=== PATIENT | female | born 1955 | race African-American/Black ===

== ENCOUNTER 2017-09-20 20:23 | Inpatient (IN) | payer OTHER ==
[~2017-09-20] VITALS: Ht 152.4 cm; Wt 124.7 kg
[2017-09-20 20:35] VITALS: BP 129/88
[2017-09-20] MEDS ORDERED: Nitroglycerin Subl 0.4mg tab SL PRN (20:45)
[2017-09-20] MEDS ORDERED: Aspirin Baby 81mg ORAL ONE (20:45)
[2017-09-20 21:40] LABS: ANION GAP 2 mmol/L (5-15); BLOOD UREA NITROGEN 20 mg/dL (7-18); CALCIUM 8.5 MG/DL (8.5-10.1); CARBON DIOXIDE 37 MMOL/L (21-32); CHLORIDE 108 MMOL/L (98-107); POTASSIUM 4.2 MMOL/L (3.5-5.1); SODIUM 147 MMOL/L (136-145)
[2017-09-20 21:55] LABS: ALANINE AMINOTRANSFERASE 30 U/L (12-78); ALBUMIN 2.7 G/DL (3.4-5.0); ALBUMIN/GLOBULIN RATIO 0.8 (1.0-2.7); ALKALINE PHOSPHATASE 84 U/L (46-116); ASPARTATE AMINO TRANSFERASE 13 U/L (15-37); BILIRUBIN,TOTAL 0.6 MG/DL (0.2-1.0); CKMB 3.2 NG/ML (0.0-3.6); CREATINE KINASE 120 U/L (26-308)
--- NOTE | 2017-09-20 22:18 | Emergency Room Report ---
History of Present Illness General Chief Complaint: Dyspnea/Respdistress Source: Patient Present Illness HPI Patient 62-year-old female brought in by EMS after increased difficulty breathing. Patient prior history of congestive heart failure. Patient was noted to have marked had difficulty breathing over the past few hours gradual onset. Patient was noted to have been given nitroglycerin 3 in the field. She started on supplemental oxygen by EMS. Patient was noted to have severe difficulty breathing worse with supine position. She denies productive cough. Patient reports having prior history of asthma as well. Allergies: Coded Allergies: No Known Allergies (Unverified , 09/20/17) Patient History Past Medical History: see triage record Last Menstrual Period: N/a Reviewed Nursing Documentation: PMH: Agreed; PSxH: Agreed Nursing Documentation-PMH Past Medical History: No History, Except For Hx Cardiac Problems: Yes - CHF Hx Asthma: Yes Hx Diabetes: No Review of Systems All Other Systems: negative except mentioned in HPI Physical Exam Vital Signs Date Time Temp Pulse Resp B/P (MAP) Pulse Ox O2 Delivery O2 Flow Rate FiO2 09/20/17 20:17 98.5 103 16 129/88 93 Room Air 98.4 09/20/17 20:35 15.0 09/20/17 20:58 50 General Appearance: moderate distress, obese, Chronically Ill ENT: hearing grossly normal Neck: full range of motion Respiratory: respiratory distress, rales Cardiovascular #1: normal peripheral pulses, edema Gastrointestinal: non tender, soft Musculoskeletal: normal inspection, back normal, digits/nails normal Neurologic: normal inspection, alert, oriented x3, responsive Medical Decision Making Diagnostic Impression: Primary Impression: Acute exacerbation of CHF (congestive heart failure) Additional Impression: Pulmonary edema ER Course Patient presented for shortness of breath. Differential included but was not limited to anemia, pneumonia, pneumothorax, myocardial infarction, pericardial effusion, congestive heart failure, acidosis. Because of complexity of patient' s case laboratory testing and imaging studies were ordered. The patient was given aspirin. EKG interpreted by me showed sinus tachycardia with a rate of [address] or T wave changes. The patient was given nitroglycerin and started on BiPAP.The patient was endorsed to Dr. Warner pending lab testing Labs Test 09/20/17 21:00 Sodium Level 147 MMOL/L (136-145) Potassium Level 4.2 MMOL/L (3.5-5.1) Chloride Level 108 MMOL/L (98-107) Carbon Dioxide Level 37 MMOL/L (21-32) Anion Gap 2 mmol/L (5-15) Blood Urea Nitrogen 20 mg/dL (7-18) Creatinine 1.0 MG/DL (0.55-1.30) Estimat Glomerular Filtration Rate 56.2 mL/min (>60) Glucose Level 72 MG/DL (74-106) Calcium Level 8.5 MG/DL (8.5-10.1) Total Bilirubin 0.6 MG/DL (0.2-1.0) Aspartate Amino Transf (AST/SGOT) 13 U/L (15-37) Alanine Aminotransferase (ALT/SGPT) 30 U/L (12-78) Alkaline Phosphatase 84 U/L (46-116) Total Creatine Kinase 120 U/L (26-308) Creatine Kinase MB 3.2 NG/ML (0.0-3.6) Creatine Kinase MB Relative Index 2.6 Troponin I 0.023 ng/mL (0.000-0.056) Pro-B-Type Natriuretic Peptide 55488 pg/mL (0-125) Total Protein 6.3 G/DL (6.4-8.2) Albumin 2.7 G/DL (3.4-5.0) Globulin 3.6 g/dL Albumin/Globulin Ratio 0.8 (1.0-2.7) EKG Diagnostic Results Rate: normal Rhythm: NSR ST Segments: no acute changes Last Vital Signs Date Time Temp Pulse Resp B/P (MAP) Pulse Ox O2 Delivery O2 Flow Rate FiO2 09/20/17 20:58 98 19 100 Facial 50 09/20/17 20:35 15.0 09/20/17 20:35 98.4 129/88 98.4 Status: improved Disposition: ADMITTED INPATIENT Condition: Serious Referrals: NON PHYSICIAN (PCP) Aleksander Gaston Sep 20, 2017 22:18
[2017-09-20 22:24] VITALS: BP 101/81
[2017-09-20] MEDS ORDERED: ALLOPURINOL300 M1 ORAL (22:36)
[2017-09-20] MEDS ORDERED: LORATADINE10 M3 PO (22:36)
[2017-09-20] MEDS ORDERED: FUROSEMIDE40 MG ORAL (22:36)
[2017-09-20] MEDS ORDERED: OMEPRAZOLE20 M2 ORAL (22:36)
[2017-09-20] MEDS ORDERED: ASPIRIN EC81 MG ORAL (22:36)
[2017-09-20] MEDS ORDERED: Albuterol/Ipratropium 3ml neb HHN PRN (23:15)
--- NOTE | 2017-09-20 23:16 | History and Physical ---
History of Present Illness General Date patient seen: Sep 20, 2017 Reason for Hospitalization: Dyspnea/Respdistress Present Illness HPI 62-year-old female with hx of DM, CHF, morbic obesity brought in by EMS with CC of increased difficulty breathing. Patient was noted to have marked difficulty breathing over the past few hours. Patient was given nitroglycerin 3 in the field by paramedics. She started on supplemental oxygen as well. Patient was noted to have severe difficulty breathing worse with supine position. She denies productive cough. Patient reports having prior history of asthma as well. She received diuretics in [place] and was put on BIPAP and transferred to [facility] Allergies: Coded Allergies: No Known Allergies (Unverified , 09/20/17) Medication History Scheduled Allopurinol* (Allopurinol*), 300 MG ORAL DAILY, (Reported) Aspirin Ec* (Aspirin Ec*), 81 MG ORAL DAILY, (Reported) Furosemide* (Lasix*), 40 MG ORAL DAILY, (Reported) Loratadine (Loratadine), 10 MG PO DAILY, (Reported) Omeprazole (Omeprazole), 20 MG ORAL DAILY, (Reported) Patient History Healthcare decision maker Resuscitation status Advanced Directive on File Past Medical/Surgical History Past Medical/Surgical History: (1) Diabetes mellitus (2) CHF (congestive heart failure) Review of Systems Constitutional: Reports: no symptoms All Other Systems: negative except mentioned in HPI Physical Exam General Appearance: WD/WN Lines, tubes and drains: peripheral HEENT: normocephalic, atraumatic Neck: non-tender, normal alignment Respiratory/Chest: chest wall non-tender, rhonchi - left, rhonchi - right Cardiovascular/Chest: normal peripheral pulses, normal rate, regular rhythm Last 24 Hour Vital Signs Date Time Temp Pulse Resp B/P (MAP) Pulse Ox O2 Delivery O2 Flow Rate FiO2 09/20/17 22:24 98.6 14 19 101/81 100 15.0 50 98.6 09/20/17 21:00 15.0 50 09/20/17 20:58 98 19 100 Facial 50 09/20/17 20:35 103 27 Non-Rebreather 15.0 09/20/17 20:35 98.4 103 16 129/88 93 Non-Rebreather 15.0 98.4 09/20/17 20:17 98.5 103 16 129/88 93 Room Air 98.4 Laboratory Tests Test 09/20/17 21:00 Sodium Level 147 MMOL/L (136-145) H Potassium Level 4.2 MMOL/L (3.5-5.1) Chloride Level 108 MMOL/L (98-107) H Carbon Dioxide Level 37 MMOL/L (21-32) H Anion Gap 2 mmol/L (5-15) L Blood Urea Nitrogen 20 mg/dL (7-18) H Creatinine 1.0 MG/DL (0.55-1.30) Estimat Glomerular Filtration Rate 56.2 mL/min (>60) Glucose Level 72 MG/DL (74-106) L Calcium Level 8.5 MG/DL (8.5-10.1) Total Bilirubin 0.6 MG/DL (0.2-1.0) Aspartate Amino Transf (AST/SGOT) 13 U/L (15-37) L Alanine Aminotransferase (ALT/SGPT) 30 U/L (12-78) Alkaline Phosphatase 84 U/L (46-116) Total Creatine Kinase 120 U/L (26-308) Creatine Kinase MB 3.2 NG/ML (0.0-3.6) Creatine Kinase MB Relative Index 2.6 Troponin I 0.023 ng/mL (0.000-0.056) Pro-B-Type Natriuretic Peptide 32786 pg/mL (0-125) H Total Protein 6.3 G/DL (6.4-8.2) L Albumin 2.7 G/DL (3.4-5.0) L Globulin 3.6 g/dL Albumin/Globulin Ratio 0.8 (1.0-2.7) L Digoxin Level Pending Height (Feet): 5 Weight (Pounds): 260 Medications Current Medications Medications (Trade) Dose Ordered Sig/Sylvester Route PRN Reason Start Time Stop Time Status Last Admin Dose Admin Acetaminophen (Tylenol) 650 mg ONCE ONCE ORAL 09/20/17 23:15 09/20/17 23:16 Acetaminophen (Tylenol) 650 mg Q4H PRN ORAL Fever 09/20/17 23:15 10/20/17 23:14 UNV Albuterol/ Ipratropium (Albuterol/ Ipratropium) 3 ml EVERY 4 HOURS PRN HHN Shortness of Breath 09/20/17 23:15 09/25/17 23:14 Allopurinol (Allopurinol) 300 mg DAILY ORAL 09/21/17 09:00 10/21/17 08:59 Dextrose (Dextrose 50%) STAT PRN IV Hypoglycemia 09/20/17 23:15 10/20/17 23:14 UNV Furosemide (Lasix) 40 mg EVERY 8 HOURS STAT IV 09/20/17 23:07 09/20/17 23:08 UNV Heparin Sodium (Porcine) (Heparin 5000 units/ml) 5,000 units EVERY 12 HOURS SUBQ 09/21/17 09:00 10/21/17 08:59 UNV Nitroglycerin (Ntg) 0.4 mg Q5M PRN SL Prn Chest Pain 09/20/17 20:45 10/20/17 20:44 Ondansetron HCl (Zofran) 4 mg Q6H PRN IVP Nausea & Vomiting 09/20/17 23:15 10/20/17 23:14 Ondansetron HCl (Zofran) 4 mg Q6H PRN IVP Nausea & Vomiting 09/20/17 23:15 10/20/17 23:14 UNV Polyethylene Glycol (Miralax) 17 gm DAILYPRN PRN ORAL Constipation 09/20/17 23:15 10/20/17 23:14 UNV Temazepam (Restoril) 15 mg HSPRN PRN ORAL Insomnia 09/20/17 23:15 09/27/17 23:14 UNV Assessment/Plan Problem List: (1) Acute respiratory failure ICD Codes: J96.00 - Acute respiratory failure, unspecified whether with hypoxia or hypercapnia SNOMED: 21573795 (2) Acute exacerbation of CHF (congestive heart failure) ICD Codes: I50.9 - Heart failure, unspecified SNOMED: 99452290 (3) Diabetes mellitus ICD Codes: E11.9 - Type 2 diabetes mellitus without complications SNOMED: 55172037 (4) Pulmonary edema ICD Codes: J81.1 - Chronic pulmonary edema SNOMED: 59996401 Assessment/Plan diuretics echo cardio to see sliding scale diabetic diet. Meme Keller MD Sep 20, 2017 23:16
[2017-09-21] VITALS (7 sets, daily range): BP systolic 112–159; BP diastolic 70–100
[2017-09-21 00:18] LABS: BASOPHILS % (AUTO) 0.9 % (0.0-2.0); EOSINOPHILS % (AUTO) 1.6 % (0.0-3.0); HEMATOCRIT 45.4 % (37.0-47.0); HEMOGLOBIN 14.9 G/DL (12.0-16.0); LYMPHOCYTES % (AUTO) 19.3 % (20.0-45.0); MEAN CORPUSCULAR VOLUME 92 FL (80-99); MONOCYTES % (AUTO) 11.5 % (1.0-10.0); NEUTROPHILS % (AUTO) 66.8 % (45.0-75.0); PLATELET COUNT 217 K/UL (150-450); RED BLOOD COUNT 4.95 M/UL (4.20-5.40); RED CELL DISTRIBUTION WIDTH 15.8 % (11.6-14.8); WHITE BLOOD COUNT 6.8 K/UL (4.8-10.8)
--- NOTE | 2017-09-21 02:49 | Emergency Room Report ---
History of Present Illness General Chief Complaint: Dyspnea/Respdistress Source: Patient Present Illness Allergies: Coded Allergies: No Known Allergies (Unverified , 09/20/17) Patient History Last Menstrual Period: N/a Nursing Documentation-[facility] Past Medical History: No History, Except For Hx Cardiac Problems: No Hx Asthma: Yes Hx Diabetes: Yes Hx Cancer: No Hx Gastrointestinal Problems: No Hx Neurological Problems: No Physical Exam Vital Signs Date Time Temp Pulse Resp B/P (MAP) Pulse Ox O2 Delivery O2 Flow Rate FiO2 09/20/17 20:17 98.5 103 16 129/88 93 Room Air 98.4 09/20/17 20:35 15.0 09/20/17 20:58 50 Medical Decision Making Diagnostic Impression: Primary Impression: Acute exacerbation of CHF (congestive heart failure) Additional Impression: Pulmonary edema ER Course Please refer to the initial note for the history exam and presentation Patient is a fairly complex patient with multiple differential to consideration including but not limited to cardiac cardiopulmonary and vascular emergencies Patient's imaging reveals cardiomegaly with some congestion Patient has done well on BiPAP Blood work is noted below And patient requiring admission to higher level of care Labs Test 09/20/17 21:00 09/21/17 00:04 Sodium Level 147 MMOL/L (136-145) Potassium Level 4.2 MMOL/L (3.5-5.1) Chloride Level 108 MMOL/L (98-107) Carbon Dioxide Level 37 MMOL/L (21-32) Anion Gap 2 mmol/L (5-15) Blood Urea Nitrogen 20 mg/dL (7-18) Creatinine 1.0 MG/DL (0.55-1.30) Estimat Glomerular Filtration Rate 56.2 mL/min (>60) Glucose Level 72 MG/DL (74-106) Calcium Level 8.5 MG/DL (8.5-10.1) Total Bilirubin 0.6 MG/DL (0.2-1.0) Aspartate Amino Transf (AST/SGOT) 13 U/L (15-37) Alanine Aminotransferase (ALT/SGPT) 30 U/L (12-78) Alkaline Phosphatase 84 U/L (46-116) Total Creatine Kinase 120 U/L (26-308) Creatine Kinase MB 3.2 NG/ML (0.0-3.6) Creatine Kinase MB Relative Index 2.6 Troponin I 0.023 ng/mL (0.000-0.056) Pro-B-Type Natriuretic Peptide 65860 pg/mL (0-125) Total Protein 6.3 G/DL (6.4-8.2) Albumin 2.7 G/DL (3.4-5.0) Globulin 3.6 g/dL Albumin/Globulin Ratio 0.8 (1.0-2.7) Digoxin Level < 0.2 NG/ML (0.9-2.0) White Blood Count 6.8 K/UL (4.8-10.8) Red Blood Count 4.95 M/UL (4.20-5.40) Hemoglobin 14.9 G/DL (12.0-16.0) Hematocrit 45.4 % (37.0-47.0) Mean Corpuscular Volume 92 FL (80-99) Mean Corpuscular Hemoglobin 30.2 PG (27.0-31.0) Mean Corpuscular Hemoglobin Concent 32.9 G/DL (32.0-36.0) Red Cell Distribution Width 15.8 % (11.6-14.8) Platelet Count 217 K/UL (150-450) Mean Platelet Volume 8.0 FL (6.5-10.1) Neutrophils (%) (Auto) 66.8 % (45.0-75.0) Lymphocytes (%) (Auto) 19.3 % (20.0-45.0) Monocytes (%) (Auto) 11.5 % (1.0-10.0) Eosinophils (%) (Auto) 1.6 % (0.0-3.0) Basophils (%) (Auto) 0.9 % (0.0-2.0) Rhythm Strip Diag. Results EP Interpretation: yes Rate: 88 Rhythm: NSR, no PVC's, no ectopy, other - Nonspecific STand T-wave changes Chest X-Ray Diagnostic Results Chest X-Ray Diagnostic Results : Chest X-Ray Ordered: Yes # of Views/Limited/Complete: 1 View Indication: Chest Pain EP Interpretation: Yes Interpretation: no consolidation, no pneumothorax, other - Cardiac megaly questionable effusion on the right side, left lower lobe difficult to evaluate no acute bony abnormalities Impression: Other - Acute CHF Last Vital Signs Date Time Temp Pulse Resp B/P (MAP) Pulse Ox O2 Delivery O2 Flow Rate FiO2 4/3/18 01:21 112 26 99 Facial 50 09/21/17 01:00 36.67622 120/70 10.0 207.9 Status: improved Disposition: ADMITTED INPATIENT Condition: Serious Referrals: NON PHYSICIAN (PCP) Tatum Warner DO Sep 21, 2017 02:49
[2017-09-21 06:24] LABS: BASOPHILS % (AUTO) 1.1 % (0.0-2.0); EOSINOPHILS % (AUTO) 2.3 % (0.0-3.0); HEMATOCRIT 44.9 % (37.0-47.0); HEMOGLOBIN 14.4 G/DL (12.0-16.0); MEAN CORPUSCULAR VOLUME 92 FL (80-99); MONOCYTES % (AUTO) 12.8 % (1.0-10.0); NEUTROPHILS % (AUTO) 61.8 % (45.0-75.0); PLATELET COUNT 208 K/UL (150-450); RED BLOOD COUNT 4.86 M/UL (4.20-5.40); RED CELL DISTRIBUTION WIDTH 16.1 % (11.6-14.8); WHITE BLOOD COUNT 6.2 K/UL (4.8-10.8)
[2017-09-21 07:45] LABS: ALBUMIN 2.7 G/DL (3.4-5.0); ANION GAP 5 mmol/L (5-15); BLOOD UREA NITROGEN 20 mg/dL (7-18); CALCIUM 8.5 MG/DL (8.5-10.1); CARBON DIOXIDE 35 MMOL/L (21-32); CHLORIDE 106 MMOL/L (98-107); CREATININE 0.9 MG/DL (0.55-1.30); POTASSIUM 4.9 MMOL/L (3.5-5.1); SODIUM 146 MMOL/L (136-145)
[2017-09-21] MEDS ORDERED: Miralax 17gm pkt ORAL SCH (09:00)
[2017-09-21] MEDS ORDERED: Heparin 5000 units/ml inj SUBQ SCH (09:00)
--- NOTE | 2017-09-21 09:07 | Diagnostic Imaging Report ---
Indication: Shortness of breath Technique: One view of the chest Comparison: none Findings: Patient body habitus limits evaluation. The heart is enlarged. Left hemidiaphragm is obscured. Uncertain as to whether this is due to disease or due to overlapping soft tissue shadows. Hazy opacity at the right lung base probably reflects overlying breast tissue Impression: Limited exam, as described Cardiomegaly. Cannot rule out pleural and/or parenchymal disease at the left lung base
--- NOTE | 2017-09-21 10:34 | Diagnostic Imaging Report ---
Indication: Reason For Exam: DYSPNEA Technique: One view of the chest Comparison: none Findings: The heart is enlarged. The left hemidiaphragm is better visualized than on the prior exam. There is still obscuration of the left costophrenic sulcus, also there may be some pleural fluid present. There may be mild interstitial congestion Impression: Cardiomegaly. Equivocal mild interstitial congestion and left-sided pleural effusion. Comparison with previous study is difficult due to some differences in exam technique
--- NOTE | 2017-09-21 10:39 | Pulmonology Progress Note ---
Assessment/Plan Problems: (1) Acute respiratory failure (2) Acute exacerbation of CHF (congestive heart failure) (3) Diabetes mellitus (4) Pulmonary edema Assessment/Plan on lasix 40 Q8 hours check electrolytes watch intake /output echo sliding scale off bipap dvt porphylaxis Subjective ROS Limited/Unobtainable: No Interval Events: less short of breath Constitutional: Reports: no symptoms HEENT: Repors: no symptoms Allergies: Coded Allergies: No Known Allergies (Unverified , 09/20/17) Objective Last 24 Hour Vital Signs Date Time Temp Pulse Resp B/P (MAP) Pulse Ox O2 Delivery O2 Flow Rate FiO2 09/21/17 08:00 115 09/21/17 08:00 97.8 104 20 127/97 100 Nasal Cannula 2.0 97.8 09/21/17 07:08 Nasal Cannula 2.0 09/21/17 04:00 2.0 09/21/17 04:00 97.7 82 20 128/80 97 Nasal Cannula 2.0 97.7 09/21/17 03:23 109 09/21/17 01:21 112 26 99 Facial 50 09/21/17 01:00 36.03156 97 22 120/70 100 Non-Rebreather 10.0 50 207.9 09/21/17 01:00 97.7 97 22 120/70 100 Room Air 2.0 97.7 09/21/17 01:00 109 09/21/17 00:36 98.4 19 19 140/81 100 Non-Rebreather 15.0 50 98.4 09/21/17 00:20 98.4 09/20/17 23:21 98.6 09/20/17 23:09 106 22 100 Facial 50 09/20/17 22:24 98.6 14 19 101/81 100 15.0 50 98.6 09/20/17 21:00 15.0 50 09/20/17 20:58 98 19 100 Facial 50 09/20/17 20:35 103 27 Non-Rebreather 15.0 09/20/17 20:35 98.4 103 16 129/88 93 Non-Rebreather 15.0 98.4 09/20/17 20:17 98.5 103 16 129/88 93 Room Air 98.4 Intake and Output 09/20/17 09/21/17 19:00 07:00 Intake Total 540 ml Output Total 1500 ml Balance -960 ml Intake Oral 540 ml Output Urine Total 1500 ml General Appearance: WD/WN HEENT: normocephalic, atraumatic Respiratory/Chest: chest wall non-tender, lungs clear, normal breath sounds Breasts: no masses Cardiovascular: normal peripheral pulses, regular rhythm Abdomen: normal bowel sounds, soft, non tender, no scars Extremities: no cyanosis Skin: no rash, no ulcers Laboratory Tests 09/20/17 21:00: Sodium Level 147H, Potassium Level 4.2, Chloride Level 108H, Carbon Dioxide Level 37H, Anion Gap 2L, Blood Urea Nitrogen 20H, Creatinine 1.0, Estimat Glomerular Filtration Rate 56.2, Glucose Level 72L, Calcium Level 8.5, Total Bilirubin 0.6, Aspartate Amino Transf (AST/SGOT) 13L, Alanine Aminotransferase ( ALT/SGPT) 30, Alkaline Phosphatase 84, Total Creatine Kinase 120, Creatine Kinase MB 3.2, Creatine Kinase MB Relative Index 2.6, Troponin I 0.023, Pro-B- Type Natriuretic Peptide 25177C, Total Protein 6.3L, Albumin 2.7L, Globulin 3.6 , Albumin/Globulin Ratio 0.8L, Digoxin Level < 0.2L 09/21/17 00:04: White Blood Count 6.8, Red Blood Count 4.95, Hemoglobin 14.9, Hematocrit 45.4, Mean Corpuscular Volume 92, Mean Corpuscular Hemoglobin 30.2, Mean Corpuscular Hemoglobin Concent 32.9, Red Cell Distribution Width 15.8H, Platelet Count 217, Mean Platelet Volume 8.0, Neutrophils (%) (Auto) 66.8, Lymphocytes (%) (Auto) 19.3L, Monocytes (%) (Auto) 11.5H, Eosinophils (%) (Auto) 1.6, Basophils (%) ( Auto) 0.9 09/21/17 05:10: Sodium Level 146H, Potassium Level 4.9, Chloride Level 106, Carbon Dioxide Level 35H, Anion Gap 5, Blood Urea Nitrogen 20H, Creatinine 0.9, Estimat Glomerular Filtration Rate > 60, Glucose Level 86, Calcium Level 8.5, Troponin I 0.022, Albumin 2.7L, White Blood Count 6.2, Red Blood Count 4.86, Hemoglobin 14.4, Hematocrit 44.9, Mean Corpuscular Volume 92, Mean Corpuscular Hemoglobin 29.6, Mean Corpuscular Hemoglobin Concent 32.0, Red Cell Distribution Width 16.1H, Platelet Count 208, Mean Platelet Volume 8.1, Neutrophils (%) (Auto) 61.8 , Lymphocytes (%) (Auto) 22.0, Monocytes (%) (Auto) 12.8H, Eosinophils (%) (Auto ) 2.3, Basophils (%) (Auto) 1.1, Phosphorus Level 4.0 Current Medications Medications (Trade) Dose Ordered Sig/Sylvester Route PRN Reason Start Time Stop Time Status Last Admin Dose Admin Acetaminophen (Tylenol) 650 mg Q4H PRN ORAL Fever 09/20/17 23:15 10/20/17 23:14 Albuterol/ Ipratropium (Albuterol/ Ipratropium) 3 ml EVERY 4 HOURS PRN HHN Shortness of Breath 09/20/17 23:15 09/25/17 23:14 Allopurinol (Allopurinol) 300 mg DAILY ORAL 09/21/17 09:00 10/21/17 08:59 09/21/17 08:05 Dextrose (Dextrose 50%) STAT PRN IV Hypoglycemia 09/20/17 23:15 10/20/17 23:14 Furosemide (Lasix) 40 mg EVERY 8 HOURS IV 09/20/17 23:07 10/20/17 23:06 09/21/17 05:00 Heparin Sodium (Porcine) (Heparin 5000 units/ml) 5,000 units EVERY 12 HOURS SUBQ 09/21/17 09:00 10/21/17 08:59 09/21/17 08:07 Nitroglycerin (Ntg) 0.4 mg Q5M PRN SL Prn Chest Pain 09/20/17 20:45 10/20/17 20:44 Ondansetron HCl (Zofran) 4 mg Q6H PRN IVP Nausea & Vomiting 09/20/17 23:15 10/20/17 23:14 Polyethylene Glycol (Miralax) 17 gm DAILY ORAL 09/21/17 09:00 10/21/17 08:59 09/21/17 08:05 Temazepam (Restoril) 15 mg BEDTIME PRN ORAL Insomnia 09/20/17 23:15 09/27/17 23:14 09/21/17 02:34 Meme Keller MD Sep 21, 2017 10:39
--- NOTE | 2017-09-21 15:19 | Cardiology Progress Note ---
Assessment/Plan Assessment/Plan [id number] need guidline directed med therapy acie, diuretic bb, Aldactone eventually need fluid and na restricted diet will reviwed echo Objective Last 24 Hour Vital Signs Date Time Temp Pulse Resp B/P (MAP) Pulse Ox O2 Delivery O2 Flow Rate FiO2 09/21/17 12:00 97.5 117 20 135/100 97 Nasal Cannula 2.0 97.5 09/21/17 12:00 118 09/21/17 08:00 115 09/21/17 08:00 97.8 104 20 127/97 100 Nasal Cannula 2.0 97.8 09/21/17 07:08 Nasal Cannula 2.0 09/21/17 04:00 2.0 09/21/17 04:00 97.7 82 20 128/80 97 Nasal Cannula 2.0 97.7 09/21/17 03:23 109 09/21/17 01:21 112 26 99 Facial 50 09/21/17 01:00 36.27762 97 22 120/70 100 Non-Rebreather 10.0 50 207.9 09/21/17 01:00 97.7 97 22 120/70 100 Room Air 2.0 97.7 09/21/17 01:00 109 09/21/17 00:36 98.4 19 19 140/81 100 Non-Rebreather 15.0 50 98.4 09/21/17 00:20 98.4 09/20/17 23:21 98.6 09/20/17 23:09 106 22 100 Facial 50 09/20/17 22:24 98.6 14 19 101/81 100 15.0 50 98.6 09/20/17 21:00 15.0 50 09/20/17 20:58 98 19 100 Facial 50 09/20/17 20:35 103 27 Non-Rebreather 15.0 09/20/17 20:35 98.4 103 16 129/88 93 Non-Rebreather 15.0 98.4 09/20/17 20:17 98.5 103 16 129/88 93 Room Air 98.4 Intake and Output 09/20/17 09/21/17 19:00 07:00 Intake Total 540 ml Output Total 1500 ml Balance -960 ml Intake Oral 540 ml Output Urine Total 1500 ml Laboratory Tests Test 09/20/17 21:00 09/21/17 00:04 09/21/17 05:10 Sodium Level 147 MMOL/L (136-145) H 146 MMOL/L (136-145) H Potassium Level 4.2 MMOL/L (3.5-5.1) 4.9 MMOL/L (3.5-5.1) Chloride Level 108 MMOL/L (98-107) H 106 MMOL/L (98-107) Carbon Dioxide Level 37 MMOL/L (21-32) H 35 MMOL/L (21-32) H Anion Gap 2 mmol/L (5-15) L 5 mmol/L (5-15) Blood Urea Nitrogen 20 mg/dL (7-18) H 20 mg/dL (7-18) H Creatinine 1.0 MG/DL (0.55-1.30) 0.9 MG/DL (0.55-1.30) Estimat Glomerular Filtration Rate 56.2 mL/min (>60) > 60 mL/min (>60) Glucose Level 72 MG/DL (74-106) L 86 MG/DL (74-106) Calcium Level 8.5 MG/DL (8.5-10.1) 8.5 MG/DL (8.5-10.1) Total Bilirubin 0.6 MG/DL (0.2-1.0) Aspartate Amino Transf (AST/SGOT) 13 U/L (15-37) L Alanine Aminotransferase (ALT/SGPT) 30 U/L (12-78) Alkaline Phosphatase 84 U/L (46-116) Total Creatine Kinase 120 U/L (26-308) Creatine Kinase MB 3.2 NG/ML (0.0-3.6) Creatine Kinase MB Relative Index 2.6 Troponin I 0.023 ng/mL (0.000-0.056) 0.022 ng/mL (0.000-0.056) Pro-B-Type Natriuretic Peptide 28414 pg/mL (0-125) H Total Protein 6.3 G/DL (6.4-8.2) L Albumin 2.7 G/DL (3.4-5.0) L 2.7 G/DL (3.4-5.0) L Globulin 3.6 g/dL Albumin/Globulin Ratio 0.8 (1.0-2.7) L Digoxin Level < 0.2 NG/ML (0.9-2.0) L White Blood Count 6.8 K/UL (4.8-10.8) 6.2 K/UL (4.8-10.8) Red Blood Count 4.95 M/UL (4.20-5.40) 4.86 M/UL (4.20-5.40) Hemoglobin 14.9 G/DL (12.0-16.0) 14.4 G/DL (12.0-16.0) Hematocrit 45.4 % (37.0-47.0) 44.9 % (37.0-47.0) Mean Corpuscular Volume 92 FL (80-99) 92 FL (80-99) Mean Corpuscular Hemoglobin 30.2 PG (27.0-31.0) 29.6 PG (27.0-31.0) Mean Corpuscular Hemoglobin Concent 32.9 G/DL (32.0-36.0) 32.0 G/DL (32.0-36.0) Red Cell Distribution Width 15.8 % (11.6-14.8) H 16.1 % (11.6-14.8) H Platelet Count 217 K/UL (150-450) 208 K/UL (150-450) Mean Platelet Volume 8.0 FL (6.5-10.1) 8.1 FL (6.5-10.1) Neutrophils (%) (Auto) 66.8 % (45.0-75.0) 61.8 % (45.0-75.0) Lymphocytes (%) (Auto) 19.3 % (20.0-45.0) L 22.0 % (20.0-45.0) Monocytes (%) (Auto) 11.5 % (1.0-10.0) H 12.8 % (1.0-10.0) H Eosinophils (%) (Auto) 1.6 % (0.0-3.0) 2.3 % (0.0-3.0) Basophils (%) (Auto) 0.9 % (0.0-2.0) 1.1 % (0.0-2.0) Phosphorus Level 4.0 MG/DL (2.5-4.9) PARAMJIT GANT Sep 21, 2017 15:19
--- NOTE | 2017-09-21 17:41 | Cardiology Report ---
APPROVED REPORT EKG Measurement Heart [id number] [place] [id number] Sinus tachycardia Possible Left atrial enlargement Left axis deviation Anterior infarct, age undetermined Abnormal ECG
[2017-09-21] MEDS ORDERED: Lisinopril 10mg tab ORAL SCH (18:00)
[2017-09-21] MEDS ORDERED: Nitroglycerin Subl 0.4mg tab SL PRN (18:35)
[2017-09-21] MEDS ORDERED: Albuterol/Ipratropium 3ml neb HHN PRN (19:00)
[2017-09-21] MEDS: Lisinopril 10mg tab ORAL SCH (21:48)
[2017-09-21] MEDS: Heparin 5000 units/ml inj SUBQ SCH (21:48)
[2017-09-21] MEDS: HYDROcodone/Acetamin 10/325 tab ORAL PRN (23:10)
[2017-09-22] VITALS: BP 122/86
[2017-09-22 04:00] VITALS: BP 113/79
[2017-09-22] MEDS: HYDROcodone/Acetamin 10/325 tab ORAL PRN (06:35)
[2017-09-22 07:57] LABS: BASOPHILS % (AUTO) 1.2 % (0.0-2.0); EOSINOPHILS % (AUTO) 2.7 % (0.0-3.0); HEMATOCRIT 44.5 % (37.0-47.0); HEMOGLOBIN 13.9 G/DL (12.0-16.0); LYMPHOCYTES % (AUTO) 23.2 % (20.0-45.0); MEAN CORPUSCULAR VOLUME 93 FL (80-99); NEUTROPHILS % (AUTO) 61.8 % (45.0-75.0); PLATELET COUNT 202 K/UL (150-450); RED BLOOD COUNT 4.78 M/UL (4.20-5.40); RED CELL DISTRIBUTION WIDTH 16.3 % (11.6-14.8); WHITE BLOOD COUNT 6.7 K/UL (4.8-10.8)
[2017-09-22 08:00] VITALS: BP 125/81
[2017-09-22] MEDS ORDERED: Miralax 17gm pkt ORAL SCH (09:00)
[2017-09-22 09:27] LABS: ALANINE AMINOTRANSFERASE 26 U/L (12-78); ALBUMIN 2.4 G/DL (3.4-5.0); ALBUMIN/GLOBULIN RATIO 0.8 (1.0-2.7); ALKALINE PHOSPHATASE 81 U/L (46-116); ASPARTATE AMINO TRANSFERASE 11 U/L (15-37); BILIRUBIN,TOTAL 0.8 MG/DL (0.2-1.0); BLOOD UREA NITROGEN 19 mg/dL (7-18); CALCIUM 8.5 MG/DL (8.5-10.1); CHLORIDE 100 MMOL/L (98-107); POTASSIUM 4.4 MMOL/L (3.5-5.1); SODIUM 144 MMOL/L (136-145)
[2017-09-22] MEDS: Lisinopril 10mg tab ORAL SCH (09:29)
[2017-09-22 09:30] LABS: CARBON DIOXIDE > 45 MMOL/L (21-32)
[2017-09-22] MEDS: Heparin 5000 units/ml inj SUBQ SCH (09:30)
--- NOTE | 2017-09-22 09:45 | Consultation ---
DATE OF CONSULTATION: 09/21/2017 NOTE: POOR AUDIO CARDIOLOGY CONSULTATION CONSULTING PHYSICIAN: Justen Simmons M.D. REFERRING PHYSICIAN: Meme Keller M.D. REASON FOR CONSULTATION: Possible congestive heart failure. HISTORY OF PRESENT ILLNESS: This is a 62-year-old female who apparently has history of shortness of breath with diagnosis of congestive heart failure, previously hospitalized at [facility]. She has been short of breath for some time but it got worse in the last month. She has had some episodes of pain in her chest that she describes as a thumping sensation in her chest that sometimes lasts for a while. She had palpitations. She was not able to lie down flat because of shortness of breath. She has she is sleeping in sitting position. She does wake up at night because of shortness of breath and she has dyspnea on exertion. PAST MEDICAL HISTORY: Positive for high blood pressure. Negative for diabetes mellitus or heart attack. No cancer or stroke. No hepatitis or tuberculosis. She does have history of asthma and emphysema. No history of ulcers. No kidney problem, liver problem, thyroid problems, anemia, arthritis, or blood clots anyway. ALLERGIES: She has no known drug allergies. SOCIAL HISTORY: She does smoke 1 pack per week. She used to use drugs until approximately two months ago, marijuana is what she mentions. No alcoholic beverages. REVIEW OF SYSTEMS: CONSTITUTIONAL: She is feeling cold and hot. GASTROINTESTINAL: She is constipated. GENITOURINARY: Negative. PULMONARY: Positive for coughing, wheezing. Sputum is described as doll. NEUROLOGIC: Numbness and tingling sensation in her hands and feet. PHYSICAL EXAMINATION: GENERAL: Shows to be morbidly obese middle-aged female in no respiratory distress. HEENT: Unremarkable. NECK: Supple. No jugular venous distention. LUNGS: bilateral crackles at the bases. CARDIAC: Regular rhythm. No heaves or thrills noted. ABDOMEN: Soft, obese. Positive bowel sounds. EXTREMITIES: There is no clubbing or cyanosis. There is some edema of the lower extremities bilaterally. LABORATORY VALUES: An echocardiogram showed ejection fraction of 20% to 25%, global LV hypokinesis, moderate right atrial enlargement, [id number] aortic insufficiency, and [id number] mitral regurgitation, and diastolic relaxation abnormalities stage 1, and pulmonary artery pressure in the 60s. Venous duplex study was within normal limits. Her EKG showed sinus rhythm at rate of 102 consistent with sinus tachycardia of mild degree, leftward axis, and could be right bundle-branch conduction defect. Her labs, white count of 6.2, hemoglobin 14.5, and platelet count of 208,000. Sodium , potassium 4.9, chloride 106, bicarbonate 35, BUN 20, creatinine 0.9, glucose of 86. Troponin 0.022 and 0.023. Pro-BNP of 10,429. Albumin 2.7. Digoxin less than 0.2. Chest x-ray performed in the emergency room shows cardiomegaly, limited examination. Repeat chest x-ray was performed today and showed interstitial congestion and left-sided pleural effusion. Venous duplex study of the lower extremities reportedly was negative although it was limited study. ASSESSMENT AND PLAN: 1. Congestive heart failure, acute on chronic. 2. Cardiomyopathy. 3. Mitral regurgitation and aortic regurgitation. 4. Morbid obesity. 5. COPD. Dr. Keller, this patient was seen in cardiac consultation. As you know, the patient has been diagnosed with congestive heart failure, previously was hospitalized ejection fraction of 20% to 25% with valvular heart disease as well, which is likely contributing to shortness of breath. She needs fluid restriction, sodium restriction, and diuretics and she needs to be on KELSEY inhibitors and probable Entresto if she is able to take that. She does not appear to be on medical therapy which I will start her here and hopefully should be able to continue those at home as well. 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 signs that the patient had been treated for directly for congestive heart failure. Justen Simmons M.D. DR: Miranda JOB#: [id number] CC:
--- NOTE | 2017-09-22 10:59 | Diagnostic Imaging Report ---
Indication: Dyspnea Comparison: 09/21/2017 A single view chest radiograph was obtained. Findings: Pulmonary vascular congestion and associated with cardiomegaly. Findings similar on the prior occasion. IMPRESSION: Mild CHF unchanged
[2017-09-22 12:00] VITALS: BP 116/60
[2017-09-22] MEDS ORDERED: FUROSEMIDE40 MG ORAL (13:06)
[2017-09-22] MEDS ORDERED: LISINOPRIL10 MG ORAL (13:06)
[2017-09-22] MEDS ORDERED: ALLOPURINOL100 M1 ORAL (13:06)
[2017-09-22] MEDS ORDERED: COREG3.125 MG ORAL (13:06)
[2017-09-22] MEDS ORDERED: HYDROcodone/Acetamin 10/325 ORAL (13:06)
--- NOTE | 2017-09-22 21:44 | Consultation ---
History of Present Illness General Date patient seen: Sep 21, 2017 Chief Complaint: Dyspnea/Respdistress Present Illness HPI 62-year-old female who apparently has history of shortness of breath with diagnosis of congestive heart failure, previously hospitalized at [facility]. Allergies: Coded Allergies: No Known Allergies (Unverified , 09/20/17) Medication History Scheduled Allopurinol* (Allopurinol*), 300 MG ORAL DAILY, (Reported) Allopurinol* (Allopurinol*), 300 MG ORAL DAILY Aspirin Ec* (Aspirin Ec*), 81 MG ORAL DAILY, (Reported) Carvedilol (Coreg), 3.125 MG ORAL EVERY 12 HOURS Furosemide* (Lasix*), 40 MG ORAL DAILY, (Reported) Furosemide* (Lasix*), 40 MG ORAL TWICE A DAY Lisinopril* (Lisinopril*), 10 MG ORAL BID Loratadine (Loratadine), 10 MG PO DAILY, (Reported) Omeprazole (Omeprazole), 20 MG ORAL DAILY, (Reported) Scheduled PRN [HYDROcodone/Acetamin 10/325], 1 TAB ORAL Q6HR PRN Patient History Limited by: medical condition History Provided By: Patient, Medical Record, PMD Healthcare decision maker Resuscitation status Full Code Advanced Directive on File No Past Medical/Surgical History Past Medical/Surgical History: (1) Diabetes mellitus (2) CHF (congestive heart failure) (3) Acute respiratory failure Review of Systems Psychiatric: Reports: prior hx, anxiety, depressed feelings, emotional problems Physical Exam General Appearance: no apparent distress, alert Neurologic: oriented x 3, responsive, depressed affect Last 24 Hour Vital Signs Date Time Temp Pulse Resp B/P (MAP) Pulse Ox O2 Delivery O2 Flow Rate FiO2 09/22/17 12:00 116 09/22/17 12:00 97.3 108 22 116/60 97 Nasal Cannula 3.0 97.3 09/22/17 09:29 125/81 09/22/17 09:29 108 125/81 09/22/17 09:00 95 Nasal Cannula 3.0 09/22/17 08:00 97.5 108 22 125/81 91 Nasal Cannula 2.0 97.5 09/22/17 08:00 107 09/22/17 07:16 Nasal Cannula 2.0 28 09/22/17 04:00 98.2 115 24 113/79 96 Nasal Cannula 2.0 98.2 09/22/17 04:00 107 09/22/17 00:00 98.2 58 24 122/86 96 Nasal Cannula 2.0 98.2 09/22/17 00:00 83 09/21/17 21:48 112/78 09/21/17 21:48 96 112/78 Intake and Output 09/21/17 09/22/17 19:00 07:00 Intake Total 600 ml Output Total 2300 ml 1050 ml Balance -2300 ml -450 ml Intake Oral 600 ml Output Urine Total 2300 ml 1050 ml Laboratory Tests Test 09/22/17 06:25 White Blood Count 6.7 K/UL (4.8-10.8) Red Blood Count 4.78 M/UL (4.20-5.40) Hemoglobin 13.9 G/DL (12.0-16.0) Hematocrit 44.5 % (37.0-47.0) Mean Corpuscular Volume 93 FL (80-99) Mean Corpuscular Hemoglobin 29.0 PG (27.0-31.0) Mean Corpuscular Hemoglobin Concent 31.2 G/DL (32.0-36.0) L Red Cell Distribution Width 16.3 % (11.6-14.8) H Platelet Count 202 K/UL (150-450) Mean Platelet Volume 8.5 FL (6.5-10.1) Neutrophils (%) (Auto) 61.8 % (45.0-75.0) Lymphocytes (%) (Auto) 23.2 % (20.0-45.0) Monocytes (%) (Auto) 11.0 % (1.0-10.0) H Eosinophils (%) (Auto) 2.7 % (0.0-3.0) Basophils (%) (Auto) 1.2 % (0.0-2.0) Sodium Level 144 MMOL/L (136-145) Potassium Level 4.4 MMOL/L (3.5-5.1) Chloride Level 100 MMOL/L (98-107) Carbon Dioxide Level > 45 MMOL/L (21-32) *H Blood Urea Nitrogen 19 mg/dL (7-18) H Creatinine 1.0 MG/DL (0.55-1.30) Estimat Glomerular Filtration Rate > 60 mL/min (>60) Glucose Level 90 MG/DL (74-106) Calcium Level 8.5 MG/DL (8.5-10.1) Total Bilirubin 0.8 MG/DL (0.2-1.0) Aspartate Amino Transf (AST/SGOT) 11 U/L (15-37) L Alanine Aminotransferase (ALT/SGPT) 26 U/L (12-78) Alkaline Phosphatase 81 U/L (46-116) Troponin I 0.037 ng/mL (0.000-0.056) Pro-B-Type Natriuretic Peptide 44479 pg/mL (0-125) H Total Protein 5.4 G/DL (6.4-8.2) L Albumin 2.4 G/DL (3.4-5.0) L Globulin 3.0 g/dL Albumin/Globulin Ratio 0.8 (1.0-2.7) L Height (Feet): 5 Height (Inches): 0.00 Weight (Pounds): 275 Assessment/Plan Assessment/Plan bipolar d/o cont current meds Windy Curran M.D. Sep 22, 2017 21:44
--- NOTE | 2017-09-22 21:46 | General Progress Note ---
Assessment/Plan Assessment/Plan bipolar d/o cont current meds Subjective Date patient seen: Sep 22, 2017 Neurologic/Psychiatric: Reports: anxiety, depressed, emotional problems Allergies: Coded Allergies: No Known Allergies (Unverified , 09/20/17) Objective Last 24 Hour Vital Signs Date Time Temp Pulse Resp B/P (MAP) Pulse Ox O2 Delivery O2 Flow Rate FiO2 09/22/17 12:00 116 09/22/17 12:00 97.3 108 22 116/60 97 Nasal Cannula 3.0 97.3 09/22/17 09:29 125/81 09/22/17 09:29 108 125/81 09/22/17 09:00 95 Nasal Cannula 3.0 09/22/17 08:00 97.5 108 22 125/81 91 Nasal Cannula 2.0 97.5 09/22/17 08:00 107 09/22/17 07:16 Nasal Cannula 2.0 28 09/22/17 04:00 98.2 115 24 113/79 96 Nasal Cannula 2.0 98.2 09/22/17 04:00 107 09/22/17 00:00 98.2 58 24 122/86 96 Nasal Cannula 2.0 98.2 09/22/17 00:00 83 09/21/17 21:48 112/78 09/21/17 21:48 96 112/78 Intake and Output 09/21/17 09/22/17 19:00 07:00 Intake Total 600 ml Output Total 2300 ml 1050 ml Balance -2300 ml -450 ml Intake Oral 600 ml Output Urine Total 2300 ml 1050 ml Laboratory Tests 09/22/17 06:25: White Blood Count 6.7, Red Blood Count 4.78, Hemoglobin 13.9, Hematocrit 44.5, Mean Corpuscular Volume 93, Mean Corpuscular Hemoglobin 29.0, Mean Corpuscular Hemoglobin Concent 31.2L, Red Cell Distribution Width 16.3H, Platelet Count 202 , Mean Platelet Volume 8.5, Neutrophils (%) (Auto) 61.8, Lymphocytes (%) (Auto) 23.2, Monocytes (%) (Auto) 11.0H, Eosinophils (%) (Auto) 2.7, Basophils (%) ( Auto) 1.2, Sodium Level 144, Potassium Level 4.4, Chloride Level 100, Carbon Dioxide Level > 45*H, Blood Urea Nitrogen 19H, Creatinine 1.0, Estimat Glomerular Filtration Rate > 60, Glucose Level 90, Calcium Level 8.5, Total Bilirubin 0.8, Aspartate Amino Transf (AST/SGOT) 11L, Alanine Aminotransferase ( ALT/SGPT) 26, Alkaline Phosphatase 81, Troponin I 0.037, Pro-B-Type Natriuretic Peptide 23366Z, Total Protein 5.4L, Albumin 2.4L, Globulin 3.0, Albumin/ Globulin Ratio 0.8L Height (Feet): 5 Height (Inches): 0.00 Weight (Pounds): 275 General Appearance: no apparent distress, alert Neurologic: alert, oriented x 3, responsive, depressed affect Windy Curran M.D. Sep 22, 2017 21:45
--- NOTE | 2017-09-23 08:13 | Diagnostic Imaging Report ---
APPROVED REPORT CPT Code: 16006 Present Symptoms Lower Extremity Pain: Left Shortness of breath Risk Factors Obesity Bed Rest Comments Technically difficult study due to patient body habitus. Thigh area. BILATERAL: Imaging reveals a patent deep venous system bilaterally. There is no evidence of thrombus within the common and proximal superficial femoral, popliteal or right tibial segments. The greater saphenous veins are also within normal limits. Doppler indicates normal spontaneous flow within these segments. The right and left mid to distal superficial femoral and left calf veins were not well visualized. Incidental finding: Enlarged bakers cyst noted at the left popliteal vein level, measuring (4.2 cm x 1.9 cm).
--- NOTE | 2017-09-23 15:34 | Discharge Summary ---
Discharge Summary Hospital Course Date of Admission Sep 20, 2017 at 22:50 Date of Discharge Sep 22, 2017 at 16:35 Admitting Diagnosis congested heart failure/ exacerbation HPI Gala Gonzalez is a 62 year old female who was admitted on Sep 20, 2017 at 22: 50 for Congested Heart Failure Exacerbation Hospital Course [id number] Discharge Discharge Disposition Patient was discharged to Home (01) Katlyn Hopkins NP Sep 23, 2017 15:34
--- NOTE | 2017-09-23 21:30 | Discharge Summary 2 SIG ---
DATE OF ADMISSION: 09/20/2017 DATE OF DISCHARGE: 09/22/2017 CONSULTANTS: 1. Windy Curran M.D. 2. Justen Simmons M.D. BRIEF HOSPITAL COURSE: The patient is a 62-year-old female with history of diabetes mellitus, CHF, morbid obesity, who was brought in by EMS for complaints of increased difficulty breathing. The patient was noted to have marked difficulty breathing over the past few hours. She was also given nitroglycerin x3 by paramedics. She was noted to have severe difficulty breathing which was worse on supine position. She denied sputum production. She has medical history significant for CHF, COPD/asthma. On evaluation at ED, she was given aspirin. EKG showed sinus tachycardia at rate of 102, without acute ST or T-wave changes. Initial troponin was 0.023. She was initially placed on BiPAP. She had chest x-ray done that showed cardiomegaly with questionable effusion on the right side, left lower lobe difficult to evaluate, there were no acute abnormalities seen. She was given diuretics. She was then admitted to [facility] for acute respiratory failure and acute exacerbation of congestive heart failure. She was continued on diuretics and underwent cardiac evaluation. An echocardiogram showed ejection fraction of 20% to 25% with global left ventricular hypokinesis, moderate right atrial enlargement, bcjljshx-[id number]-[id number] aortic insufficiency, [id number] mitral regurgitation, diastolic relaxation abnormality stage I, and pulmonary artery pressure in the 60s. Venous duplex study was within normal limits. She had an EKG that showed sinus tachycardia of mild degree, leftward axis, and possible right bundle-branch conduction defect. She was placed on fluid restriction and sodium restriction. She was continued on beta-kriss Coreg and KELSEY inhibitors. She has bipolar disorder and was followed by psychiatrist. She was taken off BiPAP support and was continued on nasal cannula. Troponins were negative. Venous duplex was negative for acute DVT. Repeat chest x-ray showed mild unchanged CHF. She was eventually cleared for discharge. The patient was discharged home. FINAL DIAGNOSES: 1. Acute respiratory failure. 2. Acute exacerbation of systolic and diastolic congestive heart failure. 3. Cardiomyopathy. 4. Mitral regurgitation and aortic regurgitation. 5. Morbid obesity. 6. Pulmonary edema. 7. COPD. 8. Diabetes mellitus. DISPOSITION: The patient was discharged home on continuous O2. DISCHARGE MEDICATIONS: Refer to medication list. DISCHARGE INSTRUCTIONS: Follow up with PMD in a week. Meme Keller M.D. I have been assigned to dictate discharge summary on this account and I was not involved in the patient's management. Katlyn Hopkins N.P. DR: Nacho JOB#: [id number] CC: [id number]
== END 2017-09-22 16:35 | disposition hospice, home (50) | DRG 194 ==
LOC: EDBD 20:23 → EMR 22:00 → EDBEDREQ 22:39 → 2W 22:50 → EDBEDREQ 22:56 → 2E 09-21 18:59
DX: I50.43 Acute on chronic combined systolic (congestive) and diastolic (congestive) heart failure (principal); J96.00 Acute respiratory failure, unspecified whether with hypoxia or hypercapnia; I42.9 Cardiomyopathy, unspecified; Z68.43 Body mass index [BMI] 50.0-59.9, adult; E66.01 Morbid (severe) obesity due to excess calories; I35.1 Nonrheumatic aortic (valve) insufficiency; I34.0 Nonrheumatic mitral (valve) insufficiency; J44.9 Chronic obstructive pulmonary disease, unspecified; E11.9 Type 2 diabetes mellitus without complications; F17.200 Nicotine dependence, unspecified, uncomplicated
CPT/HCPCS: 36415; 71045; 80048; 80053; 80069; 80162; 82550; 82553; 82962; 83880; 84484; 85025; 87070; 87205; 93005; 93306; 93970; 94660; 99285